=== PATIENT | female | born 1935 | race Caucasian/White ===

== ENCOUNTER 2019-09-20 21:23 | Emergency (ER) | payer MEDICARE, BC ==
[2019-09-20] MEDS ORDERED: HYDROcodone/Acetaminophen 5/325 mg Tablet ONE (21:44)
== END 2019-09-20 22:03 | disposition home or self-care (01) ==
LOC: ERS 21:23
DX: H92.01 Otalgia, right ear (principal); E11.9 Type 2 diabetes mellitus without complications; I10 Essential (primary) hypertension; F41.9 Anxiety disorder, unspecified; Z79.84 Long term (current) use of oral hypoglycemic drugs; I25.10 Atherosclerotic heart disease of native coronary artery without angina pectoris; Z79.82 Long term (current) use of aspirin; Z79.899 Other long term (current) drug therapy; Z79.891 Long term (current) use of opiate analgesic
CPT/HCPCS: 99282

== ENCOUNTER 2022-12-21 20:38 | Emergency (ER) | payer MEDICARE, BC ==
[2022-12-21 21:25] LABS: #Eosinphils 0.1 thou/uL (0.0-0.7); #Monocytes 0.6 thou/uL (0.11-0.59); #Neutrophils 6.6 thou/uL (1.40-6.50); %Basophils 0.5 % (0.0-1.0); %Eosinophils 1.6 % (0.0-10.0); %Lymphocytes 13.3 % (21.0-51.0); %Monocytes 7.3 % (0.0-10.0); %Neutrophils 76.7 % (42.0-75.0); Hemoglobin 12.4 g/dL (12.0-16.0); Mean Corpuscular HGB CONC 30.8 g/dL (32.0-36.0); Mean Corpuscular Hemoglobin 27.1 pg (27.0-31.0); Mean Corpuscular Volume 88.2 fl (78.0-98.0); Mean Platelet Volume 11.2 fL (7.4-10.4); Platelet Count 232 10x3/uL (130-400); RBC Distribution Width 16.1 % (11.5-14.5); Red Blood Cell (RBC) Count 4.57 mill/uL (4.20-5.40); White Blood Cell (WBC) Count 8.6 10x3/uL (4.8-10.8)
[2022-12-21 21:47] LABS: ALT (SGPT) 12 U/L (8-55); AST (SGOT) 11 U/L (5-34); Albumin 4.1 g/dL (3.4-4.8); Alkaline Phosphatase 83 U/L (40-110); Anion Gap 14 mmol/L (10-20); BUN (Urea Nitrogen) 19 mg/dL (9.8-20.1); Bilirubin, Total 0.6 mg/dL (0.2-1.2); Calc. Creatinine Clearance 0 mL/min (70-130); Carbon Dioxide 27 mmol/L (23-31); Chloride 99 mmol/L (98-107); Estimated GFR 66; Globulin 3.1 g/dL (2.4-3.5); Glucose 175 mg/dL (83-110); Potassium 3.8 mmol/L (3.5-5.1); Protein, Total 7.2 g/dL (5.8-8.1); Sodium 136 mmol/L (136-145)
[2022-12-21] MEDS ORDERED: Furosemide 20 MG/2 ML VIAL ONE (22:52)
== END 2022-12-22 00:18 | disposition home or self-care (01) ==
LOC: ERS 20:38
DX: E87.70 Fluid overload, unspecified (principal); I11.0 Hypertensive heart disease with heart failure; I50.9 Heart failure, unspecified; I25.10 Atherosclerotic heart disease of native coronary artery without angina pectoris; E11.9 Type 2 diabetes mellitus without complications; Z79.84 Long term (current) use of oral hypoglycemic drugs; Z79.82 Long term (current) use of aspirin
CPT/HCPCS: 71045; 80053; 83605; 83880; 84484; 85025; 93005; 96374; J1940

== ENCOUNTER 2023-03-25 19:19 | Inpatient (IN) | payer MEDICARE, BC ==
[2023-03-25] MEDS ORDERED: Furosemide 40 MG/4 ML VIAL ONE (20:11)
[2023-03-25 20:27] LABS: #Eosinphils 0.1 thou/uL (0.0-0.7); #Monocytes 0.9 thou/uL (0.11-0.59); #Neutrophils 8.8 thou/uL (1.40-6.50); %Basophils 0.4 % (0.0-1.0); %Eosinophils 0.8 % (0.0-10.0); %Lymphocytes 8.3 % (21.0-51.0); %Monocytes 8.4 % (0.0-10.0); %Neutrophils 81.5 % (42.0-75.0); Hematocrit 34.8 % (36.0-47.0); Hemoglobin 11.1 g/dL (12.0-16.0); Mean Corpuscular HGB CONC 31.9 g/dL (32.0-36.0); Mean Corpuscular Hemoglobin 27.3 pg (27.0-31.0); Mean Corpuscular Volume 85.5 fl (78.0-98.0); Mean Platelet Volume 11.1 fL (7.4-10.4); Platelet Count 224 10x3/uL (130-400); RBC Distribution Width 16.1 % (11.5-14.5); Red Blood Cell (RBC) Count 4.07 mill/uL (4.20-5.40); White Blood Cell (WBC) Count 10.8 10x3/uL (4.8-10.8)
[2023-03-25 20:59] LABS: ALT (SGPT) 14 U/L (8-55); AST (SGOT) 10 U/L (5-34); Albumin 3.4 g/dL (3.4-4.8); Alkaline Phosphatase 104 U/L (40-110); Anion Gap 14 mmol/L (10-20); BUN (Urea Nitrogen) 23 mg/dL (9.8-20.1); Bilirubin, Total 0.6 mg/dL (0.2-1.2); Calc. Creatinine Clearance 0 mL/min (70-130); Calcium 9.2 mg/dL (7.8-10.44); Carbon Dioxide 26 mmol/L (23-31); Chloride 96 mmol/L (98-107); Estimated GFR 61; Globulin 3.4 g/dL (2.4-3.5); Glucose 237 mg/dL (83-110); Potassium 3.8 mmol/L (3.5-5.1); Protein, Total 6.8 g/dL (5.8-8.1); Sodium 132 mmol/L (136-145)
[2023-03-25] MEDS ORDERED: Ondansetron ODT 4 MG TAB PO PRN (23:52)
[2023-03-25] MEDS ORDERED: Acetaminophen 650 MG Suppository PR PRN (23:52)
[2023-03-25] MEDS ORDERED: Ondansetron PF 4 MG/2 ML Vial IVP PRN (23:52)
[2023-03-25] MEDS ORDERED: Dextrose 50% Abboject 50 ML SYRINGE SLOW IVP PRN (23:55)
[2023-03-25] MEDS ORDERED: Glucagon 1 MG/ML KIT IM PRN (23:55)
[2023-03-25] MEDS ORDERED: Dextrose 5% in Water 1,000 ML IV PRN (23:55)
[2023-03-25] MEDS ORDERED: Colchicine 0.6 MG TAB PO SCH (23:59)
[2023-03-26 01:42] VITALS: BMI 30.8
[2023-03-26] MEDS ORDERED: Electrolyte Replacement Protocol 1 EACH FS SCH (06:15)
[2023-03-26] MEDS: HumaLOG 300 UNITS/3 ML VIAL SC PRN ×4 (06:39→21:15)
[2023-03-26 06:56] LABS: #Eosinphils 0.1 thou/uL (0.0-0.7); #Monocytes 0.8 thou/uL (0.11-0.59); #Neutrophils 7.2 thou/uL (1.40-6.50); %Basophils 0.3 % (0.0-1.0); %Eosinophils 1.5 % (0.0-10.0); %Lymphocytes 11.8 % (21.0-51.0); %Monocytes 8.4 % (0.0-10.0); %Neutrophils 77.4 % (42.0-75.0); Hematocrit 35.4 % (36.0-47.0); Mean Corpuscular HGB CONC 31.1 g/dL (32.0-36.0); Mean Corpuscular Hemoglobin 26.6 pg (27.0-31.0); Mean Corpuscular Volume 85.7 fl (78.0-98.0); Mean Platelet Volume 11.6 fL (7.4-10.4); Platelet Count 216 10x3/uL (130-400); RBC Distribution Width 16.3 % (11.5-14.5); Red Blood Cell (RBC) Count 4.13 mill/uL (4.20-5.40); White Blood Cell (WBC) Count 9.3 10x3/uL (4.8-10.8)
[2023-03-26] MEDS ORDERED: Bupivacaine 0.25% HCL 30 ML VIAL ONE (07:02)
[2023-03-26] MEDS ORDERED: EPINEPHrine 1 MG/ML AMP ONE (07:02)
[2023-03-26 07:22] LABS: Anion Gap 12 mmol/L (10-20); BUN (Urea Nitrogen) 21 mg/dL (9.8-20.1); Calc. Creatinine Clearance 57 mL/min (70-130); Calcium 9.3 mg/dL (7.8-10.44); Carbon Dioxide 28 mmol/L (23-31); Chloride 96 mmol/L (98-107); Estimated GFR 69; Glucose 191 mg/dL (83-110); Potassium 3.3 mmol/L (3.5-5.1); Sodium 133 mmol/L (136-145)
[2023-03-26] MEDS ORDERED: Potassium Chloride 20 MEQ TAB PO SCH (08:00)
[2023-03-26] MEDS: Furosemide 40 MG/4 ML VIAL SLOW IVP SCH (10:33)
[2023-03-26] MEDS: Heparin 5,000 UNITS/ML VIAL SC SCH ×2 (10:33→14:58)
[2023-03-26] MEDS ORDERED: CLORAZEPATE DIPOTASSIUM 7.5 MG PO PRN (15:30)
[2023-03-26] MEDS: Apixaban 5 MG TAB PO SCH (21:15)
[2023-03-26] MEDS: Rosuvastatin 5 MG TAB PO SCH (21:15)
[2023-03-27] MEDS: HumaLOG 300 UNITS/3 ML VIAL SC PRN ×3 (05:40→20:31)
[2023-03-27 06:28] LABS: Anion Gap 13 mmol/L (10-20); BUN (Urea Nitrogen) 17 mg/dL (9.8-20.1); Calc. Creatinine Clearance 61 mL/min (70-130); Calcium 9.4 mg/dL (7.8-10.44); Carbon Dioxide 29 mmol/L (23-31); Chloride 96 mmol/L (98-107); Estimated GFR 74; Glucose 210 mg/dL (83-110); Potassium 3.6 mmol/L (3.5-5.1); Sodium 134 mmol/L (136-145)
[2023-03-27] MEDS: Apixaban 5 MG TAB PO SCH ×2 (08:22→20:16)
[2023-03-27] MEDS: Furosemide 40 MG/4 ML VIAL SLOW IVP SCH (08:22)
[2023-03-27] MEDS ORDERED: prednisoLONE 10 MG ODT TAB PO SCH (09:00)
[2023-03-27] MEDS ORDERED: Furosemide 20 MG/2 ML VIAL SLOW IVP SCH (17:00)
[2023-03-27] MEDS: metFORMIN 500 MG TAB PO SCH (17:09)
[2023-03-27] MEDS: Carvedilol 6.25 MG TAB PO SCH (17:09)
[2023-03-27] MEDS: Rosuvastatin 5 MG TAB PO SCH (20:16)
[2023-03-27] MEDS ORDERED: Melatonin 3 MG TAB PO PRN (20:39)
[2023-03-28] MEDS: HumaLOG 300 UNITS/3 ML VIAL SC PRN ×4 (05:44→20:22)
[2023-03-28 07:07] LABS: Anion Gap 14 mmol/L (10-20); BUN (Urea Nitrogen) 16 mg/dL (9.8-20.1); Calc. Creatinine Clearance 63 mL/min (70-130); Calcium 9.3 mg/dL (7.8-10.44); Carbon Dioxide 30 mmol/L (23-31); Chloride 95 mmol/L (98-107); Estimated GFR 77; Glucose 274 mg/dL (83-110); Potassium 3.5 mmol/L (3.5-5.1); Sodium 135 mmol/L (136-145)
[2023-03-28] MEDS ORDERED: Potassium Chloride 20 MEQ TAB PO SCH (08:00)
[2023-03-28] MEDS: metFORMIN 500 MG TAB PO SCH ×2 (08:47→18:04)
[2023-03-28] MEDS: Apixaban 5 MG TAB PO SCH ×2 (08:47→20:21)
[2023-03-28] MEDS: Furosemide 40 MG/4 ML VIAL SLOW IVP SCH (08:48)
[2023-03-28] MEDS: Carvedilol 6.25 MG TAB PO SCH ×2 (08:48→18:04)
[2023-03-28] MEDS: Rosuvastatin 5 MG TAB PO SCH (20:21)
[2023-03-29] MEDS: HumaLOG 300 UNITS/3 ML VIAL SC PRN ×3 (05:11→17:33)
[2023-03-29 08:19] LABS: Anion Gap 12 mmol/L (10-20); BUN (Urea Nitrogen) 20 mg/dL (9.8-20.1); Calc. Creatinine Clearance 63 mL/min (70-130); Calcium 9.1 mg/dL (7.8-10.44); Carbon Dioxide 29 mmol/L (23-31); Chloride 98 mmol/L (98-107); Estimated GFR 77; Glucose 233 mg/dL (83-110); Potassium 3.8 mmol/L (3.5-5.1); Sodium 135 mmol/L (136-145)
[2023-03-29] MEDS: metFORMIN 500 MG TAB PO SCH ×2 (09:16→17:32)
[2023-03-29] MEDS: Furosemide 40 MG/4 ML VIAL SLOW IVP SCH (09:17)
[2023-03-29] MEDS: Carvedilol 6.25 MG TAB PO SCH ×2 (09:17→17:32)
[2023-03-29] MEDS: Apixaban 5 MG TAB PO SCH ×2 (09:17→20:27)
[2023-03-29] MEDS: Acetaminophen 325 MG TAB PO PRN (17:31)
[2023-03-29] MEDS ORDERED: dilTIAZem 30 MG TAB PO SCH (18:30)
[2023-03-29] MEDS: Rosuvastatin 5 MG TAB PO SCH (20:27)
[2023-03-29] MEDS ORDERED: HYDROcodone/Acetaminophen 5/325 mg Tablet PO SCH (21:15)
[2023-03-29 21:36] LABS: Troponin I Less than 0.010 ng/mL (< 0.028)
[2023-03-30 06:48] LABS: #Eosinphils 0.3 thou/uL (0.0-0.7); #Monocytes 0.8 thou/uL (0.11-0.59); #Neutrophils 7.7 thou/uL (1.40-6.50); %Basophils 0.2 % (0.0-1.0); %Eosinophils 2.7 % (0.0-10.0); %Lymphocytes 9.8 % (21.0-51.0); %Monocytes 8.5 % (0.0-10.0); Hematocrit 34.9 % (36.0-47.0); Hemoglobin 10.5 g/dL (12.0-16.0); Mean Corpuscular HGB CONC 30.1 g/dL (32.0-36.0); Mean Corpuscular Hemoglobin 26.6 pg (27.0-31.0); Mean Corpuscular Volume 88.6 fl (78.0-98.0); Mean Platelet Volume 9.7 fL (7.4-10.4); Platelet Count 282 10x3/uL (130-400); RBC Distribution Width 16.4 % (11.5-14.5); Red Blood Cell (RBC) Count 3.94 mill/uL (4.20-5.40); White Blood Cell (WBC) Count 9.9 10x3/uL (4.8-10.8)
[2023-03-30 07:13] LABS: Magnesium 1.4 mg/dL (1.6-2.6)
[2023-03-30] MEDS ORDERED: Magnesium Sulfate In Water 4 GM in Premix Bag 1 BAG IVPB SCH (09:00)
[2023-03-30] MEDS: Carvedilol 6.25 MG TAB PO SCH ×2 (09:12→17:21)
[2023-03-30] MEDS: Furosemide 40 MG TAB PO SCH (09:12)
[2023-03-30] MEDS: metFORMIN 500 MG TAB PO SCH ×2 (09:13→17:21)
[2023-03-30] MEDS: Apixaban 5 MG TAB PO SCH ×2 (09:13→20:04)
[2023-03-30] MEDS: HumaLOG 300 UNITS/3 ML VIAL SC PRN ×2 (13:54→17:21)
[2023-03-30] MEDS: Acetaminophen 325 MG TAB PO PRN (20:04)
[2023-03-30] MEDS: Rosuvastatin 5 MG TAB PO SCH (20:05)
[2023-03-31 07:16] LABS: Magnesium 1.7 mg/dL (1.6-2.6)
[2023-03-31 07:49] VITALS: BP 128/89; TEMP 97.3
[2023-03-31] MEDS ORDERED: Magnesium 2 GM/50 ML(in water) 2 GM in Premix Bag 1 BAG IVPB SCH (08:00)
[2023-03-31] MEDS: metFORMIN 500 MG TAB PO SCH (08:53)
[2023-03-31] MEDS: Furosemide 40 MG TAB PO SCH (08:53)
[2023-03-31] MEDS: Carvedilol 6.25 MG TAB PO SCH (08:53)
[2023-03-31] MEDS: Acetaminophen 325 MG TAB PO PRN (08:54)
[2023-03-31] MEDS: Apixaban 5 MG TAB PO SCH (08:55)
[2023-03-31] MEDS: HumaLOG 300 UNITS/3 ML VIAL SC PRN (11:43)
== END 2023-03-31 13:49 | DRG 291 ==
LOC: ERS 19:19 → T4-B 22:10 → OBSVTOIN 03-26 13:29
PROVIDERS: ADMIT Student in an Organized Health Care Education/Training Program; ATTEND Family Medicine
PROC: 3E033XZ Introduction of Vasopressor into Peripheral Vein, Percutaneous Approach (ICD-10-PCS; principal; 2023-03-26)
DX: I11.0 Hypertensive heart disease with heart failure (principal); I50.33 Acute on chronic diastolic (congestive) heart failure; E87.1 Hypo-osmolality and hyponatremia; I48.19 Other persistent atrial fibrillation; E11.9 Type 2 diabetes mellitus without complications; R53.81 Other malaise; E87.6 Hypokalemia; E83.42 Hypomagnesemia; I25.10 Atherosclerotic heart disease of native coronary artery without angina pectoris; Z95.5 Presence of coronary angioplasty implant and graft; Z79.899 Other long term (current) drug therapy; Z91.013 Allergy to seafood; Z88.5 Allergy status to narcotic agent; Z79.84 Long term (current) use of oral hypoglycemic drugs; Z90.710 Acquired absence of both cervix and uterus; Z90.49 Acquired absence of other specified parts of digestive tract
CPT/HCPCS: 36415; 36416; 71045; 80048; 80053; 83735; 83880; 84484; 84550; 85025; 93005; 93010; 96372; 96374; 96376; G0378; J0171; J1644; J1815; J1940; J3475; S0020

== ENCOUNTER 2023-06-07 06:17 | Inpatient (IN) | payer MEDICARE, BC ==
[2023-06-07] MEDS ORDERED: Furosemide 40 MG/4 ML VIAL ONE (06:23)
[2023-06-07] MEDS ORDERED: methylPREDNISolone Sod Succ/PF 125 MG/2 ML VIAL ONE (06:23)
[2023-06-07 06:30] LABS: Actual Bicarbonate (HCO3a) 19.5 mEq/L (22-28); Analyzer IN Cardio ER; Base Excess (BEa) -6.3 mEq/L (-2.0 to +3.0); Calcium, Ionized (arterial) 1.18 mmol/L (1.12-1.30); Carboxyhemoglobin (COHb) 1.1 gm% (0.0-3.0); Hematocrit-ABG 42 % (36.0-47.0); Hemoglobin (Hb) 14.2 g/dL (12.0-16.0); O2 Tension (PaO2), arterial 160.2 mmHg (> 60.0); Potassium - ABG Lab 4.46 mmol/L (3.70-5.30); pH, Arterial 7.306 (7.35-7.45)
[2023-06-07] MEDS ORDERED: Ipratropium/Albuterol 3 ML NEB ONE (06:36)
[2023-06-07] MEDS ORDERED: Albuterol 2.5 MG/0.5 ML NEB ONE (06:36)
[2023-06-07 06:39] LABS: #Basophils 0.1 thou/uL (0.0-0.2); #Eosinphils 0.2 thou/uL (0.0-0.7); #Monocytes 0.6 thou/uL (0.11-0.59); #Neutrophils 5.9 thou/uL (1.40-6.50); %Basophils 0.6 % (0.0-1.0); %Eosinophils 2.2 % (0.0-10.0); %Lymphocytes 20.4 % (21.0-51.0); %Monocytes 6.9 % (0.0-10.0); %Neutrophils 68.7 % (42.0-75.0); Hematocrit 44.5 % (36.0-47.0); Hemoglobin 12.9 g/dL (12.0-16.0); Mean Corpuscular Hemoglobin 26.7 pg (27.0-31.0); Mean Corpuscular Volume 92.1 fl (78.0-98.0); Mean Platelet Volume 10.3 fL (7.4-10.4); Platelet Count 178 10x3/uL (130-400); RBC Distribution Width 18.7 % (11.5-14.5); Red Blood Cell (RBC) Count 4.83 mill/uL (4.20-5.40); White Blood Cell (WBC) Count 8.6 10x3/uL (4.8-10.8)
[2023-06-07 06:44] LABS: Puncture Site RRA
[2023-06-07] MEDS ORDERED: dilTIAZem 25 MG/5 ML VIAL ONE (06:49)
[2023-06-07 07:07] LABS: ALT (SGPT) 16 U/L (8-55); AST (SGOT) 18 U/L (5-34); Alkaline Phosphatase 101 U/L (40-110); Anion Gap 18 mmol/L (10-20); BUN (Urea Nitrogen) 15 mg/dL (9.8-20.1); Bilirubin, Total 0.7 mg/dL (0.2-1.2); Calc. Creatinine Clearance 0 mL/min (70-130); Calcium 9.3 mg/dL (7.8-10.44); Carbon Dioxide 23 mmol/L (23-31); Chloride 100 mmol/L (98-107); Estimated GFR 53; Globulin 2.7 g/dL (2.4-3.5); Glucose 331 mg/dL (83-110); Protein, Total 6.7 g/dL (5.8-8.1); Sodium 137 mmol/L (136-145)
[2023-06-07 07:11] LABS: Troponin I 0.021 ng/mL (< 0.028)
[2023-06-07] MEDS ORDERED: diphenhydrAMINE 50 MG/ML VIAL ONE (07:57)
[2023-06-07] MEDS ORDERED: Famotidine/PF 20 mg/2ml Vial ONE (07:57)
[2023-06-07] MEDS ORDERED: Iopamidol-370 76% 500 ML MDV (1 ML CHARGE) ONE (08:34)
[2023-06-07] MEDS ORDERED: Ondansetron ODT 4 MG TAB PO PRN (10:34)
[2023-06-07] MEDS ORDERED: Acetaminophen 325 MG TAB PO PRN (10:34)
[2023-06-07] MEDS ORDERED: Ondansetron PF 4 MG/2 ML Vial IVP PRN (10:34)
[2023-06-07] MEDS ORDERED: Glucagon 1 MG/ML KIT IM PRN (10:38)
[2023-06-07] MEDS ORDERED: Dextrose 50% Abboject 50 ML SYRINGE SLOW IVP PRN (10:38)
[2023-06-07] MEDS ORDERED: Dextrose 5% in Water 1,000 ML IV PRN (10:38)
[2023-06-07] MEDS ORDERED: Ipratropium/Albuterol 3 ML NEB NEB PRN (10:42)
[2023-06-07 10:54] LABS: Magnesium 1.9 mg/dL (1.6-2.6)
[2023-06-07 11:06] VITALS: BMI 29.0
[2023-06-07] MEDS ORDERED: Furosemide 40 MG/4 ML VIAL SLOW IVP SCH (16:15)
[2023-06-07] MEDS: Furosemide 40 MG/4 ML VIAL SLOW IVP SCH (16:24)
[2023-06-07] MEDS: HumaLOG 300 UNITS/3 ML VIAL SC PRN ×2 (19:21→20:32)
[2023-06-07] MEDS: methylPREDNISolone Sod Succ 40 MG VIAL IVP SCH (20:32)
[2023-06-08 05:30] LABS: #Monocytes 0.6 thou/uL (0.11-0.59); #Neutrophils 7.5 thou/uL (1.40-6.50); %Basophils 0.1 % (0.0-1.0); %Lymphocytes 7.7 % (21.0-51.0); %Monocytes 6.5 % (0.0-10.0); %Neutrophils 84.8 % (42.0-75.0); Hematocrit 44.6 % (36.0-47.0); Hemoglobin 13.2 g/dL (12.0-16.0); Mean Corpuscular HGB CONC 29.6 g/dL (32.0-36.0); Mean Corpuscular Hemoglobin 26.8 pg (27.0-31.0); Mean Corpuscular Volume 90.7 fl (78.0-98.0); Mean Platelet Volume 11.9 fL (7.4-10.4); Platelet Count 254 10x3/uL (130-400); RBC Distribution Width 18.9 % (11.5-14.5); Red Blood Cell (RBC) Count 4.92 mill/uL (4.20-5.40); White Blood Cell (WBC) Count 8.9 10x3/uL (4.8-10.8)
[2023-06-08 05:53] LABS: Anion Gap 22 mmol/L (10-20); BUN (Urea Nitrogen) 33 mg/dL (9.8-20.1); Calc. Creatinine Clearance 31 mL/min (70-130); Calcium 9.6 mg/dL (7.8-10.44); Carbon Dioxide 22 mmol/L (23-31); Chloride 96 mmol/L (98-107); Estimated GFR 34; Glucose 255 mg/dL (83-110); Potassium 4.5 mmol/L (3.5-5.1); Sodium 135 mmol/L (136-145)
[2023-06-08] MEDS: Furosemide 40 MG/4 ML VIAL SLOW IVP SCH (06:04)
[2023-06-08] MEDS: HumaLOG 300 UNITS/3 ML VIAL SC PRN ×4 (06:08→21:08)
[2023-06-08] MEDS ORDERED: Meclizine HCl 25 MG TAB PO PRN (07:49)
[2023-06-08] MEDS ORDERED: Carvedilol 6.25 MG TAB PO SCH (09:00)
[2023-06-08] MEDS: Ferrous Sulfate 325 MG TAB PO SCH (11:04)
[2023-06-08] MEDS: Aspirin Chewable 81 MG TAB PO SCH (11:04)
[2023-06-08] MEDS: Apixaban 5 MG TAB PO SCH ×2 (11:04→20:15)
[2023-06-08] MEDS: Potassium Chloride 10 MEQ TAB PO SCH ×2 (11:05→20:15)
[2023-06-08] MEDS: Empagliflozin 25 MG TAB PO SCH (11:05)
[2023-06-08] MEDS: Furosemide 40 MG TAB PO SCH ×2 (11:05→20:14)
[2023-06-08] MEDS: Colchicine 0.6 MG TAB PO SCH ×2 (11:05→20:14)
[2023-06-08] MEDS: methylPREDNISolone Sod Succ 40 MG VIAL IVP SCH ×2 (11:05→20:15)
[2023-06-08] MEDS ORDERED: dilTIAZem 25 MG/5 ML VIAL SLOW IVP SCH (13:00)
[2023-06-08] MEDS: ALPRAZolam 0.25 MG TAB PO PRN (15:51)
[2023-06-08] MEDS: Rosuvastatin 5 MG TAB PO SCH (20:14)
[2023-06-08] MEDS ORDERED: Metoprolol Tartrate 50 MG TAB PO SCH (21:00)
[2023-06-09 05:12] LABS: #Monocytes 0.5 thou/uL (0.11-0.59); #Neutrophils 10.1 thou/uL (1.40-6.50); %Basophils 0.2 % (0.0-1.0); %Lymphocytes 4.8 % (21.0-51.0); %Monocytes 4.6 % (0.0-10.0); %Neutrophils 89.3 % (42.0-75.0); Hematocrit 44.6 % (36.0-47.0); Hemoglobin 13.6 g/dL (12.0-16.0); Mean Corpuscular HGB CONC 30.5 g/dL (32.0-36.0); Mean Corpuscular Hemoglobin 27.1 pg (27.0-31.0); Mean Platelet Volume 12.4 fL (7.4-10.4); Platelet Count 207 10x3/uL (130-400); RBC Distribution Width 18.6 % (11.5-14.5); Red Blood Cell (RBC) Count 5.01 mill/uL (4.20-5.40); White Blood Cell (WBC) Count 11.3 10x3/uL (4.8-10.8)
[2023-06-09] MEDS: Metoprolol Tartrate 5 MG/5 ML VIAL IVP PRN ×2 (05:28→06:32)
[2023-06-09 05:48] LABS: Anion Gap 22 mmol/L (10-20); BUN (Urea Nitrogen) 56 mg/dL (9.8-20.1); Calc. Creatinine Clearance 30 mL/min (70-130); Calcium 9.6 mg/dL (7.8-10.44); Carbon Dioxide 20 mmol/L (23-31); Chloride 98 mmol/L (98-107); Estimated GFR 33; Glucose 189 mg/dL (83-110); Potassium 4.9 mmol/L (3.5-5.1); Sodium 135 mmol/L (136-145)
[2023-06-09] MEDS: Aspirin Chewable 81 MG TAB PO SCH (10:04)
[2023-06-09] MEDS: Potassium Chloride 10 MEQ TAB PO SCH ×2 (10:04→20:16)
[2023-06-09] MEDS: ALPRAZolam 0.25 MG TAB PO PRN ×2 (10:04→21:56)
[2023-06-09] MEDS: Metoprolol Tartrate 50 MG TAB PO SCH ×2 (10:05→20:16)
[2023-06-09] MEDS: Furosemide 40 MG TAB PO SCH (10:05)
[2023-06-09] MEDS: Ferrous Sulfate 325 MG TAB PO SCH (10:05)
[2023-06-09] MEDS: Empagliflozin 25 MG TAB PO SCH (10:05)
[2023-06-09] MEDS: Apixaban 5 MG TAB PO SCH ×2 (10:05→20:17)
[2023-06-09] MEDS: Colchicine 0.6 MG TAB PO SCH ×2 (10:05→20:16)
[2023-06-09] MEDS: Furosemide 40 MG/4 ML VIAL SLOW IVP SCH (16:15)
[2023-06-09] MEDS: Rosuvastatin 5 MG TAB PO SCH (20:16)
[2023-06-10 04:15] LABS: #Basophils 0.1 thou/uL (0.0-0.2); #Monocytes 2.4 thou/uL (0.11-0.59); #Neutrophils 19.8 thou/uL (1.40-6.50); %Basophils 0.3 % (0.0-1.0); %Lymphocytes 2.6 % (21.0-51.0); %Monocytes 10.1 % (0.0-10.0); %Neutrophils 84.4 % (42.0-75.0); Hematocrit 44.8 % (36.0-47.0); Hemoglobin 13.5 g/dL (12.0-16.0); Mean Corpuscular HGB CONC 30.1 g/dL (32.0-36.0); Mean Corpuscular Hemoglobin 26.8 pg (27.0-31.0); Mean Corpuscular Volume 89.1 fl (78.0-98.0); Mean Platelet Volume 12.1 fL (7.4-10.4); Platelet Count 266 10x3/uL (130-400); RBC Distribution Width 18.8 % (11.5-14.5); Red Blood Cell (RBC) Count 5.03 mill/uL (4.20-5.40); White Blood Cell (WBC) Count 23.5 10x3/uL (4.8-10.8)
[2023-06-10] MEDS: Furosemide 40 MG/4 ML VIAL SLOW IVP SCH (06:04)
[2023-06-10 06:18] LABS: Chloride 96 mmol/L (98-107); Sodium 133 mmol/L (136-145)
[2023-06-10 06:19] LABS: Glucose 189 mg/dL (83-110)
[2023-06-10 06:21] LABS: Anion Gap 31 mmol/L (10-20); Carbon Dioxide 12 mmol/L (23-31)
[2023-06-10 06:24] LABS: BUN (Urea Nitrogen) 90 mg/dL (9.8-20.1)
[2023-06-10 06:26] LABS: Calc. Creatinine Clearance 17 mL/min (70-130); Calcium 8.1 mg/dL (7.8-10.44); Estimated GFR 16; Potassium 6.4 mmol/L (3.5-5.1)
[2023-06-10] MEDS ORDERED: Calcium Gluc 4.6 MEQ/10 ML (100 MG/ML) SLOW IVP ONE (06:47)
[2023-06-10] MEDS ORDERED: CALCIUM GLUC 1 GM/NS 50 ML 1 GM in Premix 1 BAG IVPB SCH (07:00)
[2023-06-10] MEDS: Metoprolol Tartrate 50 MG TAB PO SCH ×2 (07:29→10:15)
[2023-06-10 07:44] VITALS: TEMP 96.9
[2023-06-10 08:21] VITALS: BP 110/68
[2023-06-10] MEDS ORDERED: Sodium Bicarbonate 150 MEQ in Dextrose 5% in Water 1,000 ML IV SCH (09:00)
[2023-06-10] MEDS ORDERED: Apixaban 2.5 MG TAB PO SCH (09:00)
[2023-06-10] MEDS: Morphine 2 MG/ML VIAL SLOW IVP PRN ×2 (09:26→12:11)
[2023-06-10] MEDS: Aspirin Chewable 81 MG TAB PO SCH (10:14)
[2023-06-10] MEDS: Ferrous Sulfate 325 MG TAB PO SCH (10:14)
[2023-06-10] MEDS ORDERED: Morphine 2 MG/ML VIAL SLOW IVP PRN (12:54)
== END 2023-06-10 16:30 | disposition expired | DRG 291 ==
LOC: ERS 06:17 → ERHOLD 10:32 → 2SW 15:51 → OBSVTOIN 06-08 10:29
PROVIDERS: ADMIT Hospitalist; ATTEND Internal Medicine
PROC: 4A033R1 Measurement of Arterial Saturation, Peripheral, Percutaneous Approach (ICD-10-PCS; principal; 2023-06-07)
DX: I13.0 Hypertensive heart and chronic kidney disease with heart failure and stage 1 through stage 4 chronic kidney disease, or unspecified chronic kidney disease (principal); I50.23 Acute on chronic systolic (congestive) heart failure; J96.01 Acute respiratory failure with hypoxia; G93.40 Encephalopathy, unspecified; R44.3 Hallucinations, unspecified; I48.19 Other persistent atrial fibrillation; I25.112 Atherosclerotic heart disease of native coronary artery with refractory angina pectoris; Z51.5 Encounter for palliative care; Z66 Do not resuscitate; I95.9 Hypotension, unspecified; F41.9 Anxiety disorder, unspecified; M10.9 Gout, unspecified; E11.22 Type 2 diabetes mellitus with diabetic chronic kidney disease; N18.9 Chronic kidney disease, unspecified; I87.2 Venous insufficiency (chronic) (peripheral); Z90.49 Acquired absence of other specified parts of digestive tract; Z90.710 Acquired absence of both cervix and uterus; Z79.01 Long term (current) use of anticoagulants; Z79.899 Other long term (current) drug therapy; Z88.8 Allergy status to other drugs, medicaments and biological substances; Z91.041 Radiographic dye allergy status; Z91.013 Allergy to seafood; Z98.890 Other specified postprocedural states; F40.240 Claustrophobia; Z88.1 Allergy status to other antibiotic agents; Z79.84 Long term (current) use of oral hypoglycemic drugs
CPT/HCPCS: 36415; 36416; 36600; 51798; 71045; 71275; 80048; 80053; 82805; 83735; 83880; 84484; 85025; 93005; 93010; 93306; 96374; 96375; 96376; G0378; J0613; J1200; J1815; J1940; J2272; J2920; J2930; J7070; J7611; J7620; Q9967; S0028